=== PATIENT | male | born 1995 | race Caucasian/White ===

== ENCOUNTER 2019-08-06 07:04 | Day surgery (SDC) | payer OTHER ==
[~2019-08-06] VITALS: Ht 182.9 cm; Wt 98.9 kg
[2019-08-06 07:42] VITALS: BP 128/70
[2019-08-06 10:21] VITALS: BP 118/79
== END 2019-08-06 11:25 | disposition home or self-care (01) ==
LOC: GI 07:04 → OR 09:30 → GI 11:25
DX: K21.0 Gastro-esophageal reflux disease with esophagitis (principal); F12.90 Cannabis use, unspecified, uncomplicated; Z79.899 Other long term (current) drug therapy; F32.9 Major depressive disorder, single episode, unspecified
CPT/HCPCS: 43235; J1200; J1610; J2250; J2310; J3010; J3490